=== PATIENT | female | born 1985 | race Caucasian/White ===

== ENCOUNTER 2016-09-15 02:21 | Emergency (ER) | payer SELFPAY ==
[~2016-09-15] VITALS: Ht 172.7 cm; Wt 62.6 kg
[2016-09-15 02:24] VITALS: BP 140/83
[2016-09-15] MEDS ORDERED: ALBUTEROL FS 2.5 MG/3 ML VIAL.NEB NEB ONE (03:30)
== END 2016-09-15 03:59 | disposition home or self-care (01) ==
LOC: ER 02:23
DX: J06.9 Acute upper respiratory infection, unspecified (principal); F17.200 Nicotine dependence, unspecified, uncomplicated; Z88.8 Allergy status to other drugs, medicaments and biological substances
CPT/HCPCS: 94640; 99283; A4606; Z7610